=== PATIENT | female | born 1970 ===

== ENCOUNTER 2019-10-30 16:03 | Emergency (ER) | payer OTHER ==
[~2019-10-30] VITALS: Ht 157.5 cm; Wt 72.7 kg
[2019-10-30 18:18] VITALS: BP 125/73
== END 2019-10-30 18:20 | disposition home or self-care (01) ==
LOC: ER 16:04
DX: M25.531 Pain in right wrist (principal); V87.7XXA Person injured in collision between other specified motor vehicles (traffic), initial encounter; Y93.89 Activity, other specified; Y92.89 Other specified places as the place of occurrence of the external cause; Y99.8 Other external cause status
CPT/HCPCS: 29125; 73110; 99283